=== PATIENT | female | born 1975 | race Caucasian/White ===

== ENCOUNTER 2017-04-14 13:04 | Emergency (ER) | payer MEDICAID ==
[2017-04-14 15:01] VITALS: BP 131/75
== END 2017-04-14 15:01 | disposition home or self-care (01) ==
LOC: ED 13:04
DX: J18.9 Pneumonia, unspecified organism (principal); M54.30 Sciatica, unspecified side; Z90.89 Acquired absence of other organs
CPT/HCPCS: J0696

== ENCOUNTER 2017-06-28 00:33 | Emergency (ER) | payer MEDICAID ==
[~2017-06-28] VITALS: Ht 160 cm; Wt 102.0 kg
[2017-06-28 00:45] VITALS: Ht 160 cm; Wt 102.0 kg
[2017-06-28 05:42] VITALS: BP 133/80
== END 2017-06-28 05:42 | disposition home or self-care (01) ==
LOC: ED 00:33
DX: J02.9 Acute pharyngitis, unspecified (principal); H66.90 Otitis media, unspecified, unspecified ear
CPT/HCPCS: 87804; J1100

== ENCOUNTER 2017-11-09 10:05 | Emergency (ER) | payer MEDICAID ==
[~2017-11-09] VITALS: Ht 160 cm; Wt 103.9 kg
[2017-11-09 10:22] VITALS: Ht 160 cm; Wt 103.9 kg
[2017-11-09 11:09] LABS: UA SPECIFIC GRAVITY 1.015 (1.005-1.035); microscopic required? YES; urine erythrocyte 3+ (NEGATIVE)
[2017-11-09 14:13] VITALS: BP 108/67
== END 2017-11-09 14:13 | disposition home or self-care (01) ==
LOC: ED 10:05
PROVIDERS: Emergency Medicine
DX: N13.2 Hydronephrosis with renal and ureteral calculous obstruction (principal); Z90.09 Acquired absence of other part of head and neck; Z88.1 Allergy status to other antibiotic agents
CPT/HCPCS: J1885

== ENCOUNTER 2017-11-28 01:05 | Emergency (ER) | payer MEDICAID ==
[~2017-11-28] VITALS: Ht 160 cm; Wt 102.5 kg
[2017-11-28 01:12] VITALS: Ht 160 cm; Wt 102.5 kg
[2017-11-28 03:02] LABS: UA SPECIFIC GRAVITY 1.025 (1.005-1.035); microscopic required? YES; urine erythrocyte 3+ (NEGATIVE)
[2017-11-28 04:11] VITALS: BP 107/56
== END 2017-11-28 04:11 | disposition home or self-care (01) ==
LOC: ED 01:05
PROVIDERS: Emergency Medicine
DX: M54.42 Lumbago with sciatica, left side (principal); N39.0 Urinary tract infection, site not specified; Z90.89 Acquired absence of other organs; Z88.1 Allergy status to other antibiotic agents
CPT/HCPCS: J1885; J2270; J2930

== ENCOUNTER 2018-03-03 23:51 | Emergency (ER) | payer MEDICAID ==
[2018-03-03 23:57] VITALS: Ht 160 cm
[2018-03-04 00:25] LABS: BASOPHIL % 1.4 % (0-2); RED CELL DISTRIBUTION WIDTH 13.7 % (11.5-14.5)
[2018-03-04 00:27] LABS: CALCIUM 10.7 mg/dL (8.5-10.1); CHLORIDE SERUM 106 mmol/L (98-107); CREATININE SERUM 0.7 mg/dL (0.6-1.0); GFR1 > 60 mL/min; GLUCOSE SERUM 102 mg/dL (74-106); POTASSIUM SERUM 4.2 mmol/L (3.5-5.1); SODIUM SERUM 136 mmol/L (136-145)
[2018-03-04 00:28] LABS: PLATELET COUNT 373 x10^3mcL (130-400)
[2018-03-04 00:31] LABS: ALBUMIN 3.4 g/dL (3.4-5.0); ALKALINE PHOSPHATASE 88 U/L (46-116); ALT/SGPT 26 U/L (14-59); AST/SGOT 24 U/L (15-37); BILIRUBIN TOTAL 0.2 mg/dL (0.20-1.00); LIPASE 155 IU/L (73-393); TOTAL PROTEIN, SERUM 7.8 g/dL (6.4-8.2)
[2018-03-04 01:05] LABS: UA SPECIFIC GRAVITY 1.015 (1.005-1.035); microscopic required? YES; urine erythrocyte 3+ (NEGATIVE)
[2018-03-04 02:15] VITALS: BP 117/77
== END 2018-03-04 02:15 | disposition home or self-care (01) ==
LOC: ED 23:51
PROVIDERS: Emergency Medicine
DX: N13.2 Hydronephrosis with renal and ureteral calculous obstruction (principal); Z90.89 Acquired absence of other organs; Z88.1 Allergy status to other antibiotic agents
CPT/HCPCS: J1885; J2270; J2405; J7030

== ENCOUNTER 2020-03-07 02:31 | Emergency (ER) | payer MEDICAID ==
[~2020-03-07] VITALS: Ht 160 cm; Wt 99.3 kg
[2020-03-07 02:32] VITALS: BP 119/79; Ht 160 cm; Wt 99.3 kg
== END 2020-03-07 05:05 | disposition left against medical advice (07) ==
LOC: ED 02:31
DX: Z53.21 Procedure and treatment not carried out due to patient leaving prior to being seen by health care provider (principal)

== ENCOUNTER 2020-06-12 04:05 | Emergency (ER) | payer MEDICAID ==
[~2020-06-12] VITALS: Ht 160 cm; Wt 90.7 kg
[2020-06-12 04:07] VITALS: Ht 160 cm; Wt 90.7 kg
[2020-06-12 04:51] VITALS: BP 128/74
== END 2020-06-12 04:51 | disposition home or self-care (01) ==
LOC: ED 04:05
DX: U07.1 COVID-19 (principal); E11.9 Type 2 diabetes mellitus without complications; E03.9 Hypothyroidism, unspecified; Z90.89 Acquired absence of other organs; Z88.1 Allergy status to other antibiotic agents
CPT/HCPCS: U0003